=== PATIENT | male | born 1995 | race Caucasian/White ===

== ENCOUNTER 2021-11-16 12:47 | Emergency (ER) | payer OTHER, SELFPAY ==
[2021-11-16 12:50] VITALS: BP 137/91; PULSE 85; RESP 16; TEMP 37; O2SAT 96; BMI 23.6
--- NOTE | 2021-11-16 14:24 | EDS_ITS ---
HPI History of Present Illness Chief Complaint: Trauma Informant: patient Onset/Context/Timing Onset: Today Narrative Narrative: Patient presents after a fall. 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 He states he remembers the rig not working correctly and getting caught on something. He crawled about 10 feet up and was hitting something with a hammer. The next thing he knows he is on the ground. There is a time. About 20 to 30 minutes that he does not remember. He has multiple lacerations across his forehead. He states his memory is starting to come back to him now. He had a headache that is improving. He denies vision changes or nausea. He is complaining of some mild back pain. PFSH PFSH Medical History no medical history no medical history Home Medications hydrocodone-acetaminophen 5-325mg 5mg-325mg 1 tab PO Q6H PRN pain 3 days #14 tabs 11/16/21 [Rx Last Taken Unknown] Allergy/AdvReac Type Severity Reaction Status Date / Time No Known Allergies Allergy Verified 11/16/21 12:50 Social History Smoking Status: Current some day smoker tobacco type: cigarettes ROS ROS ED Constitutional Constitutional ED: Denies chills or fever(s) Eyes Eyes: Denies change in vision or discharge from eye(s) ENT ENT ED: Denies discharge from eye(s), rhinorrhea or sore throat Cardiovascular Cardiovascular: Denies chest pain or palpitations Respiratory/Chest Respiratory/Chest: Denies cough or dyspnea Gastrointestinal Gastrointestinal: Denies abdominal pain, diarrhea, nausea or vomiting Genitourinary Genitourinary ED: Denies dysuria Musculoskeletal Musculoskeletal: Reports back pain; Denies extremity pain Integumentary Reports other Details: Facial lacerations ; Denies Abrasions or rash Neurologic Neurologic: Reports headache(s); Denies weakness Psychiatric Psychiatric: Denies anxiety or depression Allergic/Immunologic Allergic/Immunologic ED: Denies lip swelling or urticaria EXAM Physical Exam Const Vital Signs: 11/16/21 12:50 11/16/21 12:55 11/16/21 14:49 Temperature 98.6 F Temperature Source Temporal Pulse Rate 85 88 Respiratory Rate 16 17 Respiratory Effort Normal Non-Labored Respiratory Depth Normal Respiratory Pattern Normal Blood Pressure 137/91 H 129/84 H Blood Pressure Mean 106 99 Pulse Ox 96 Oxygen Delivery Method Room Air Room Air 11/16/21 16:43 Temperature Temperature Source Pulse Rate 82 Respiratory Rate 17 Respiratory Effort Respiratory Depth Respiratory Pattern Blood Pressure 131/86 H Blood Pressure Mean Pulse Ox 96 Oxygen Delivery Method Positive well nourished and well developed General Appearance ED: well developed HEENT Reports normocephalic HEENT Narrative: 3 lacerations on the forehead. One measuring 2 cm, one 3 cm, and one 4 cm. Eyes PERRL and EOMs intact bilaterally Neck supple Neck Narrative: No C-spine tenderness. Chest Wall palpation of chest normal Chest Narrative: Abrasion to the left anterior chest wall. Resp normal respiratory effort and clear to auscultation bilaterally Cardio regular rate and regular rhythm GI normal to inspection, nondistended, normoactive bowel sounds and non-tender Palpation: soft Back/Spine Back/Spine Narrative: Tenderness in the mid lumbar region centrally. No overlying skin change. Extremity normal to inspection Neuro oriented x3 and no sensory deficits noted Sensorium / Orientation: alert Motor Exam: strength 5/5 throughout Psych mental status grossly normal Skin Skin Narrative: Facial lacerations as noted above. PROC Procedures Lacerations Right forehead laceration: Length: 0.79 in Depth: Sub Q Shape: Linear Prep: Shure-Clens Laceration repair: Lidocaine (1 cc 1% lidocaine) and Local Number of Sutures/Natali: 4 Suture Information: Ethilon, Simple and 5-0 Comment: 4 simple interrupted sutures of 5-0 nylon. Mid forehead laceration: Length: 1.77 in Depth: Sub Q Shape: Linear Prep: Shure-Clens Laceration repair: Irrigated, Lidocaine (3 cc 1% lidocaine.), Local and W ound explored Number of Sutures/Natali: 9 Suture Information: Ethilon, Simple and 5-0 Comment: 9 simple interrupted sutures of 5-0 nylon. Left forehead laceration: Length: 1.18 in Depth: Sub Q Shape: Linear Prep: Shure-Clens Laceration repair: Irrigated, Lidocaine (2.5 cc 1% lidocaine), Local and Wound explored Number of Sutures/Natali: 4 Suture Information: Ethilon, Simple and 5-0 Comment: 4 simple entered sutures of 5-0 nylon MDM MDM MDM Narrative Medical decision making narrative: Lab work obtained. Patient sent for CT scans of the head, C-spine, chest, abdomen, and pelvis. Lab Data Attestation: I reviewed the patient's lab results. Labs: Laboratory Results - last 24 hr 11/16/21 11/16/21 11/16/21 13:05 13:05 13:05 WBC 9.4 RBC 5.08 Hgb 15.7 Hct 45.1 MCV 88.8 MCH 30.9 MCHC 34.8 RDW Std Deviation 36.6 RDW Coeff of Doar 11.5 L Plt Count 274 MPV 9.5 Immature Gran % (Auto) 0.300 Neut % (Auto) 71.1 H Lymph % (Auto) 19.4 [place] % (Auto) 7.9 Eos % (Auto) 1.1 Baso % (Auto) 0.2 Absolute Neuts (auto) 6.7 Absolute Lymphs (auto) 1.83 Nucleated RBC % 0 PT 13.5 INR 1.1 APTT 21.6 L Sodium 141 Potassium 3.4 L Chloride 107 Carbon Dioxide 27.0 Anion Gap 7 BUN 23 H Creatinine 1.10 Estim Creat Clear Calc 103.23 Est GFR (MDRD) Af Amer 102 Est GFR (MDRD) Non-Af 84 BUN/Creatinine Ratio 20.9 H Glucose 112 H Calcium 8.9 Radiography Diagnostic Testing: Clinical Impression(s) from Imaging Studies Brain CT 11/16/21 15:00 IMPRESSION: No acute intracranial abnormality. Electronically Signed: Derick Benton MD at 16:06 EDT , Cervical Spine CT 11/16/21 15:00 IMPRESSION: Normal unenhanced CT examination of the cervical spine. Electronically Signed: Stevie Lloyd MD at 15:41 EDT , Chest/Abdomen/Pelvis CT 11/16/21 15:00 IMPRESSION: Acute mildly displaced fractures of the right L2 and L3 transverse processes. No other abnormalities in the chest, abdomen or pelvis. Electronically Signed: Derick Benton MD at 16:10 EDT , Treatment and Re-Evaluation Narrative: Patient's lab work is unremarkable. CT scan of the head and C-spine are unremarkable. CT scan of the chest is normal. CT scan of the abdomen and pel vis does reveal mildly displaced fractures of the right L2 and L3 transverse processes. Forehead lacerations repaired. Please see procedure note. Patient is to follow-up in 5 to 7 days for suture removal. He was advised to limit bending and twisting secondary to his transverse process fractures. Prescription for Nardin was sent to the pharmacy that he can use as needed. Return instructions provided. Discharge Plan Triage Chief Complaint: Trauma ED Provider: Kiki Adhikari Dx/Rx/DC Orders Clinical Impression: Fall, Face lacerations, Lumbar transverse process fracture Instructions: ED Head Injury (Adult), ED Laceration: All Closures, ED Transverse Process Fracture Prescriptions: New hydrocodone-acetaminophen 5-325 mg tablet 1 tab PO Q6H PRN (Reason: pain) 3 Days Qty: 14 0RF Primary Care Provider: Bismark Jo Referrals: [facility] OF PHYSICIANS] - 7 Days for suture removal Bismark Jo DO [Primary Care Provider] - Disposition Disposition: Home, Self Care Discharge Date/Time: 11/16/21 16:49
[2021-11-16 14:36] LABS: Absolute Lymphocyte Count 1.83 X10^3/uL (0.83-4.51); Absolute Neutrophil Count 6.7 X10^3/uL (2.0-7.7); Basophil# 0.02 X10^3/uL; Basophil% 0.2 % (0-1); Eosinophils% 1.1 % (0-5); Hematocrit 45.1 % (40-54); Hemoglobin 15.7 g/dL (13.0-16.5); Lymphocyte # 1.83 X10^3/ul (0.83-4.51); Lymphocyte % 19.4 % (19-41); Mean Corp Hgb Conc 34.8 g/dL (32-36); Mean Corpuscular Hgb 30.9 pg (27.0-32.0); Mean Corpuscular Volume 88.8 fL (80-94); Mean Platelet Vol. 9.5 fl (6.2-12.0); Monocyte# 0.74 X10^3/uL; Monocyte% 7.9 % (0-10); NRBC Flagged by Analyzer 0 % (0-5); Neutrophil % 71.1 % (47-70); Platelet Count 274 K/mm3 (150-450); RBC Distribution Width CV 11.5 % (11.6-14.6); RBC Distribution Width SD 36.6 fl (35.1-43.9); Red Blood Count 5.08 M/mm3 (4.6-6.2); White Blood Count 9.4 K/mm3 (4.4-11.0)
[2021-11-16 14:44] LABS: International Normalized Ratio 1.1; Prothrombin Time (Protime)PT. 13.5 SECONDS (11.7-14.9)
[2021-11-16 14:46] LABS: Partial Thromboplast Time 21.6 Seconds (24.1-36.2)
[2021-11-16 14:49] VITALS: BP 129/84; PULSE 88; RESP 17
[2021-11-16 14:50] LABS: Anion Gap 7 (5-15); BUN 23 mg/dL (7-18); BUN/Creat Ratio 20.9 RATIO (10-20); Calcium,Total 8.9 mg/dL (8.5-10.1); Chloride 107 mmol/L (98-107); EST Glomerular Filtration Rate 84 mL/min (>60); Est Glom Filt Rate - Afr Amer 102 mL/min (>60); Estimated Creatinine Clearance 103.23 ml/min; Glucose 112 mg/dL (74-106); Potassium 3.4 mmol/L (3.5-5.1); Sodium Level 141 mmol/L (136-145)
--- NOTE | 2021-11-16 15:00 | CT_ITS ---
EXAMINATION : Head CT w/out contrast HISTORY : trauma COMPARISON : None. TECHNIQUE : Multiple contiguous axial images were obtained from the skull base to the vertex without intravenous contrast. A radiation dose optimization technique was used for this scan. FINDINGS : The ventricles and sulci are normal in size. There is no evidence for acute intracranial hemorrhage, mass effect, or midline shift. There is no extra-axial fluid collection. There is normal zheng-white differentiation, without CT evidence of acute ischemia or infarct. The skull base and calvarium are unremarkable. The orbits are unremarkable. The paranasal sinuses are clear. The mastoid air cells are well-aerated. The soft tissues are unremarkable. CT/Brain/Head without Contrast IMPRESSION: No acute intracranial abnormality. Electronically Signed: Derick Benton MD at 16:06 EDT ,
--- NOTE | 2021-11-16 15:00 | CT_ITS ---
INDICATION: trauma EXAMINATION: CT Chest Abdomen And Pelvis W/ Contrast Injection TECHNIQUE: Images were obtained of the chest, abdomen and pelvis following IV contrast. A radiation dose optimization technique was used for this scan. IV Contrast dosage and agent: 100ML OF ISOVUE 300 COMPARISON: None. FINDINGS: Lungs: Unremarkable Mediastinum: The cardiomediastinal silhouette is not enlarged. No mediastinal, hilar or axillary adenopathy. The thoracic aorta is unremarkable. No obvious filling defect seen within the visualized pulmonary arteries. Pleura: Unremarkable Liver: Unremarkable Gallbladder: Unremarkable Spleen: Unremarkable Pancreas: Unremarkable Adrenal Glands: Unremarkable Kidneys: Unremarkable Vasculature: Unremarkable GI Tract: Unremarkable Lymphadenopathy: None Peritoneum: No ascites. Bladder: Unremarkable Reproductive organs: Unremarkable Bones/Soft tissues: Acute mildly displaced fractures of the right L2 and L3 transverse processes. CT/CT Chest, Abd, Pel w/Contrast IMPRESSION: Acute mildly displaced fractures of the right L2 and L3 transverse processes. No other abnormalities in the chest, abdomen or pelvis. Electronically Signed: Derick Benton MD at 16:10 EDT ,
--- NOTE | 2021-11-16 15:00 | CT_ITS ---
STUDY: CT CERVICAL SPINE WITHOUT CONTRAST REASON FOR EXAM: Male, 26 years old. Neck pain due to trauma. RADIATION DOSAGE (If Supplied By Facility): CTDIvol = ( 19.14 ) mGy, DLP = ( 385.97 ) mGycm TECHNIQUE: High resolution transaxial imaging was performed without contrast material. Sagittal and coronal images were reconstructed. Individualized dose optimization techniques were used for this CT. COMPARISON: None FINDINGS: Normal craniovertebral junction. Normal anterior atlantoaxial articulation. Normal odontoid process. Normal cervical lordosis. Normal vertebral bodies and posterior osseous elements. C2-3: Normal endplates. Normal disc height and morphology. Normal central canal and intervertebral neuroforamina. C3-4: Normal endplates. Normal disc height and morphology. Normal central canal and intervertebral neuroforamina. C4-5: Normal endplates. Normal disc height and morphology. Normal central canal and intervertebral neuroforamina. C5-6: Normal endplates. Normal disc height and morphology. Normal central canal and intervertebral neuroforamina. C6-7: Normal endplates. Normal disc height and morphology. Normal central canal and intervertebral neuroforamina. C7-T1: Normal endplates. Normal disc height and morphology. Normal central canal and intervertebral neuroforamina. Normal visualized soft tissue structures. CT/Spine Cervical without Contras IMPRESSION: Normal unenhanced CT examination of the cervical spine. Electronically Signed: Stevie Lloyd MD at 15:41 EDT ,
[2021-11-16] MEDS: 0.9% Normal Saline 1,000 ML 150 ML IV (15:17)
[2021-11-16] MEDS: Lidocaine 1% (20 ml mdv) 20 ML Vial INFILT (15:18)
[2021-11-16 16:43] VITALS: BP 131/86; PULSE 82; RESP 17; O2SAT 96
== END 2021-11-16 16:49 | disposition home or self-care (01) ==
PROVIDERS: Emergency Provider Emergency Medicine; PCP Family Medicine; Visit Provider Emergency Medicine
DX: S01.81XA Laceration without foreign body of other part of head, initial encounter (principal); S32.029A Unspecified fracture of second lumbar vertebra, initial encounter for closed fracture; S32.039A Unspecified fracture of third lumbar vertebra, initial encounter for closed fracture; Y93.89 Activity, other specified; Y99.0 Civilian activity done for income or pay; W17.0XXA Fall into well, initial encounter; Y92.89 Other specified places as the place of occurrence of the external cause; F17.210 Nicotine dependence, cigarettes, uncomplicated
CPT/HCPCS: 12015; 70450; 71260; 72125; 74177; 80048; 85025; 85610; 85730; 96360; 99285; Q9967; A4216